=== PATIENT | male | born 1985 | race Asian ===

== ENCOUNTER 2021-09-07 19:39 | Inpatient (IN) | payer OTHER ==
[~2021-09-07] VITALS: Ht 167.6 cm; Wt 71.7 kg
--- NOTE | 2021-09-07 19:40 | NUR ---
BIBFRIEND C/O ASTHMA ATTACK INHALER AT HOME NO RELIEF. UPON TRIAGE PT ON NRB 15LPM SATTING AT 96%. PT AWAKE. CONNECTED PT TO POX AND MONITOR
--- NOTE | 2021-09-07 19:45 | NUR ---
LAC #20G S/L; PATENT AND INTACT
[2021-09-07] MEDS ORDERED: ALBUTEROL FS 2.5 MG/3 ML VIAL.NEB ONE (19:46)
[2021-09-07] MEDS ORDERED: IPRATROPIUM NEB FS 0.5 MG/2.5 ML AMPUL.NEB ONE ×2 (19:47→19:51)
--- NOTE | 2021-09-07 19:48 | NUR ---
RT AT PT'S BEDSIDE FOR BREATHING TX
[2021-09-07] MEDS ORDERED: TERBUTALINE SULFATE 1 MG/ML VIAL ONE (19:50)
[2021-09-07] MEDS ORDERED: methylPREDNISolone SOD SUCC 125 MG/2ML VIAL ONE (19:50)
[2021-09-07] MEDS ORDERED: Magnesium 1GM/D5W 100ML PREMIX 100 ML IV ONE ×2 (19:50→19:58)
--- NOTE | 2021-09-07 19:53 | NUR ---
BLOOD COLLECTED AND GIVEN TO LAB
[2021-09-07] MEDS ORDERED: Magnesium 1GM/D5W 100ML PREMIX 200 ML IV ONE (20:00)
[2021-09-07] MEDS ORDERED: TERBUTALINE SULFATE 1 MG/ML VIAL SQ ONE (20:00)
[2021-09-07] MEDS ORDERED: methylPREDNISolone SOD SUCC 125 MG/2ML VIAL IV ONE (20:00)
[2021-09-07] MEDS ORDERED: IPRATROPIUM NEB FS 0.5 MG/2.5 ML AMPUL.NEB NEB ONE (20:00)
[2021-09-07] MEDS ORDERED: IV NS 0.9% 1,000 ML IV ONE (20:00)
[2021-09-07] MEDS ORDERED: ALBUTEROL FS 2.5 MG/3 ML VIAL.NEB CONTNEB ONE (20:00)
--- NOTE | 2021-09-07 20:09 | NUR ---
ASSISTED LIVING COORDINATOR AT PT'S BEDSIDE
--- NOTE | 2021-09-07 20:42 | NUR ---
COVID SWAB COLLECTED AND SENT TO LAB
[2021-09-07 20:56] LABS: BASOPHILS # (AUTO) 0.1 K/uL (0.0-0.2); BASOPHILS % (AUTO) 0.5 % (0.0-2.0); CREATININE 1.3 mg/dL (0.6-1.3); EOSINOPHILS % (AUTO) 7.1 % (0.0-6.0); HEMATOCRIT 49 % (39-51); HEMOGLOBIN 16.6 g/dL (13.5-17.5); LYMPHOCYTES # (AUTO) 1.6 K/uL (0.8-4.8); LYMPHOCYTES % (AUTO) 11.1 % (20.0-44.0); MEAN CORPUSCULAR HGB CONC 34 g/dl (31.0-36.0); MEAN CORPUSCULAR VOLUME 92 fL (80-96); MONOCYTES # (AUTO) 1.2 K/uL (0.1-1.30); MONOCYTES % (AUTO) 8.4 % (2.0-12.0); NEUTROPHILS # (AUTO) 10.8 K/uL (1.8-8.9); NEUTROPHILS % (AUTO) 72.9 % (43.0-81.0); PLATELET COUNT (AUTO) 311 K/uL (150-450); POTASSIUM 3.8 mmol/L (3.5-5.1); RED BLOOD CELL COUNT(AUTO) 5.33 MIL/uL (4.5-6.0); WHITE BLOOD COUNT (AUTO) 14.7 K/uL (4.3-11.0)
--- NOTE | 2021-09-07 20:58 | NUR ---
TITRATED PT TO 8LPM SIMPLE MASK; TOLERATING WELL AT 96%
[2021-09-07] MEDS ORDERED: ZOLPIDEM TARTRATE 5 MG TABLET PO PRN (21:00)
[2021-09-07] MEDS ORDERED: MAG HYDROX/AL HYDROX/SIMETH 30 ML UDC PO PRN (21:00)
[2021-09-07] MEDS ORDERED: ONDANSETRON HCL/PF 4 MG/2 ML VIAL IVP PRN (21:00)
[2021-09-07] MEDS ORDERED: MAGNESIUM HYDROXIDE 30 ML UDC PO PRN (21:00)
[2021-09-07] MEDS ORDERED: Z GUARD REMEDY 4 OZ OINT TP PRN (21:00)
[2021-09-07 21:46] LABS: CALCIUM, SERUM 8.8 mg/dL (8.5-10.1)
--- NOTE | 2021-09-07 22:07 | NUR ---
SPOKE TO ART AT [facility], CLININCAL INFO GIVEN OVER THE PHONE. PT GOT AUTHTO STAY AT THE HOSPITAL WITH AUTH NO. [id number] FAX:[phone]
--- NOTE | 2021-09-07 22:19 | NUR ---
FAXED FACE SHEET AND CLININCALS TO ART
--- NOTE | 2021-09-07 22:46 | NUR ---
REPORT GIVEN TO NIKKI BartlettW RN FOR JOSE
[2021-09-07 23:00] VITALS: BP 137/96
--- NOTE | 2021-09-07 23:00 | NUR ---
COATING ENGINEER NOTES: RECEIVED PATIENT FROM ER VIA RNEY, ON STABLE CONDITION, NO COMPLAIN OF PAIN AND DISCOMFORT AT THIS TIME, ON TELE MONITORING ST-107 ON O2 INHALATION AT 2LPM SATURATING WELL, PATIENT HAS SOB BED IS UPRIGHT AT 45 DEGREE, SKIN ASSESSMENT DONE NO ISSUE HAS BEEN OBSERVED, INVENTORY LIST DONE SIGNED, PATIENT WAS ORIENTED TO ROOM, REMIND PATIENT TO USE CALL LIGHTS WHEN NEEDED ASSISTANCE, V/S ARE S FOLLOWS: BP-137/96, RR-23, O2 SAT-98% VIA 2LPM NASAL CANNULA, HR-106, PATIENT KEPT CLEAN AND DRY ALL NEEDS MET WILL CONTINUE TO MONITOR.
--- NOTE | 2021-09-07 23:05 | NUR ---
PT TRANSFERRED TO 3W VIA ACLS PROTOCOL . VSS. ALL BELONGINGS WITH PT.
[2021-09-07] MEDS: ALBUTEROL FS 2.5 MG/3 ML VIAL.NEB NEB SCH (23:11)
[2021-09-07] MEDS: IPRATROPIUM NEB FS 0.5 MG/2.5 ML AMPUL.NEB NEB SCH (23:12)
[2021-09-08] VITALS: BP 100/63
[2021-09-08] MEDS: IPRATROPIUM NEB FS 0.5 MG/2.5 ML AMPUL.NEB NEB SCH ×6 (03:45→23:37)
[2021-09-08] MEDS: ALBUTEROL FS 2.5 MG/3 ML VIAL.NEB NEB SCH ×6 (03:45→23:36)
[2021-09-08 04:00] VITALS: BP 102/48
[2021-09-08 06:08] LABS: CALCIUM, SERUM 8.5 mg/dL (8.5-10.1); CREATININE 1.2 mg/dL (0.6-1.3); MAGNESIUM 2.4 mg/dL (1.8-2.4); PHOSPHORUS 3.4 mg/dL (2.5-4.9); POTASSIUM 4.4 mmol/L (3.5-5.1)
--- NOTE | 2021-09-08 06:28 | NUR ---
FUR GRADER CLOSING NOTES: PATIENT SLEEP IN BED COMFORTABLY, AROUSABLE TO VERBAL STIMULI, BED IN LOW POSITION, CALL LIGHTS WITHIN REACH, NO COMPLAIN OF PAIN AND DISCOMFORT AT THIS TIME, ON O2 INHALATION AT 2LPM SATURATING WELL, ON TELE MONITORING SR-91, PATIENT IS A/OX4 VELMA TO MAKE NEEDS KNOWN REMIND PT. TO USE CALL LIGHTS WHEN NEEDED ASSISTANCE, PATIENT KEPT CLEAN AND DRY ALL NEEDS MET ENDORSE TO INCOMING SHIFT.
[2021-09-08 06:45] LABS: BASOPHILS % (AUTO) 0.1 % (0.0-2.0); HEMATOCRIT 44 % (39-51); HEMOGLOBIN 14.8 g/dL (13.5-17.5); LYMPHOCYTES # (AUTO) 0.4 K/uL (0.8-4.8); MEAN CORPUSCULAR HGB CONC 34 g/dl (31.0-36.0); MEAN CORPUSCULAR VOLUME 92 fL (80-96); MONOCYTES # (AUTO) 0.1 K/uL (0.1-1.30); MONOCYTES % (AUTO) 0.6 % (2.0-12.0); NEUTROPHILS # (AUTO) 9.3 K/uL (1.8-8.9); NEUTROPHILS % (AUTO) 95.3 % (43.0-81.0); PLATELET COUNT (AUTO) 260 K/uL (150-450); RED BLOOD CELL COUNT(AUTO) 4.78 MIL/uL (4.5-6.0); WHITE BLOOD COUNT (AUTO) 9.8 K/uL (4.3-11.0)
--- NOTE | 2021-09-08 07:45 | NUR ---
TELE/RN OPENING NOTES: RECEIVED PATIENT IN BED, ALERT AND ORIENTED X4, ABLE TO MAKE NEEDS KNOWN. NO COMPLAINTS OF PAIN AND DISCOMFORT AT THIS TIME, ON OXYGEN VIA NASAL CANNULA AT 2LPM SATURATING WELL, ON TELE MONITORING SR 90'S. IV ACCESS ON LEFT AC #20G IS INTACT AND PATENT ON SALINE LOCK. SAFETY MEASURES IN PLACED: BED LOCKED ON LOWEST POSITION, SIDE RAILS UPX2, CALL LIGHT WITHIN EASY REACH. WILL CONTINUE WITH THE PLAN OF CARE.
[2021-09-08 08:00] VITALS: BP 106/46
--- NOTE | 2021-09-08 08:11 | NUR ---
PT. IS AWAKE AND ALERT. TITRATE 02 FLOW FROM 3 LPM TO 2 LPM DUE TO SATURATION OF 96% Addendum: 09/08/21 at 0814 by KRISTIAN VAUGHAN RT Amended: Links added.
[2021-09-08] MEDS: methylPREDNISolone SOD SUCC 125 MG/2ML VIAL IV SCH ×3 (08:40→17:23)
[2021-09-08] MEDS ORDERED: ALBU8.5H8 IH (08:47)
[2021-09-08] MEDS: IV NS 0.9% 1,000 ML IV SCH ×2 (11:24→23:19)
[2021-09-08 12:00] VITALS: BP 121/46
[2021-09-08] MEDS: ACETAMINOPHEN 325 MG TABLET PO PRN (13:21)
[2021-09-08 16:00] VITALS: BP 106/56
--- NOTE | 2021-09-08 19:40 | NUR ---
RN OPENING NOTES Patient is A&Ox4 in bed in no signs of distress. Denies pain or discomfort at this time. Denies SOB. ST on the monitor 105 at this time LAC #20G intact and patent NS running at 75ml/hr. Will continue to monitor and with plan of care.
[2021-09-08 20:00] VITALS: BP 117/53
--- NOTE | 2021-09-08 20:30 | NUR ---
Patient HR ST on monitor in 120s up to 130 at one point. Checked on patient. Patient says it does feel like his heart is racing which happens after his breathing treatments but will go away. No other symptoms or signs seen. Will monitor patient closely.
--- NOTE | 2021-09-08 21:00 | NUR ---
Patient's HR back down to 108 patient reports feeling better.
[2021-09-09] VITALS: BP 104/68
[2021-09-09 04:00] VITALS: BP 105/53
[2021-09-09] MEDS: ALBUTEROL FS 2.5 MG/3 ML VIAL.NEB NEB SCH ×6 (04:03→23:25)
[2021-09-09] MEDS: IPRATROPIUM NEB FS 0.5 MG/2.5 ML AMPUL.NEB NEB SCH ×6 (04:03→23:25)
[2021-09-09] MEDS: LORAZEPAM 1 MG TABLET PO PRN (04:06)
--- NOTE | 2021-09-09 06:45 | NUR ---
RN CLOSING NOTES Patient A&Ox4 patient reports he feels fatigued, but otherwise no episodes of SOB. Patient stayed on bed rest. Satting at 96% and above on 2L via NC. ST on tele monitor overnight with heart rate usually 100-110 but going up to 120s immediately after breathing treatment but resolves shortly thereafter. LAC #20G still intact and patent NS at 75ml/hr running. Currently stable resting in bed though easy to wake. No signs of distress.
[2021-09-09 07:20] LABS: CALCIUM, SERUM 8.6 mg/dL (8.5-10.1); POTASSIUM 4.2 mmol/L (3.5-5.1)
[2021-09-09 07:22] LABS: HEMATOCRIT 43 % (39-51); LYMPHOCYTES # (AUTO) 0.6 K/uL (0.8-4.8); LYMPHOCYTES % (AUTO) 2.9 % (20.0-44.0); MEAN CORPUSCULAR HGB CONC 32 g/dl (31.0-36.0); MEAN CORPUSCULAR VOLUME 92 fL (80-96); MONOCYTES # (AUTO) 0.8 K/uL (0.1-1.30); MONOCYTES % (AUTO) 4.3 % (2.0-12.0); NEUTROPHILS # (AUTO) 18.1 K/uL (1.8-8.9); NEUTROPHILS % (AUTO) 92.8 % (43.0-81.0); PLATELET COUNT (AUTO) 270 K/uL (150-450); RED BLOOD CELL COUNT(AUTO) 4.67 MIL/uL (4.5-6.0); WHITE BLOOD COUNT (AUTO) 19.5 K/uL (4.3-11.0)
--- NOTE | 2021-09-09 07:45 | NUR ---
RN NOTES RESTING IN BED, EYES CLOSED, BREATHING EVEN AND UNLABORED ON O2 AT 2L VIA NC. NO RESPIRATORY DISTRESS NOTED. ABLE TO MAKE NEEDS KNOWN. IVF INFUSING WELL. SAFETY MEASURES IN PLACE. WILL CONTINUE TO MONITOR.
[2021-09-09 08:00] VITALS: BP 108/48
[2021-09-09] MEDS: methylPREDNISolone SOD SUCC 125 MG/2ML VIAL IV SCH ×2 (09:16→16:18)
[2021-09-09] MEDS: IV NS 0.9% 1,000 ML IV SCH (12:26)
[2021-09-09 16:00] VITALS: BP 125/57
[2021-09-09] MEDS: ACETAMINOPHEN 325 MG TABLET PO PRN (17:43)
--- NOTE | 2021-09-09 19:24 | NUR ---
RN NOTES PATIENT RESTING IN BED, NO RESPIRATORY DISTRESS. REQUESTED FOR TYLENOL FOR HEADACHE, ADMINISTERED INDICATED. DUE MEDS GIVEN TODAY. BREATHING TX TAKEN FAIRLY. SAFETY MEASURES MAINTAINED. ENDORSED TO AIR PURIFIER SERVICER RN FOR JOSE.
[2021-09-09 20:00] VITALS: BP 140/71
--- NOTE | 2021-09-09 20:16 | NUR ---
RT albuterol not given due to high heart rate. notified rashawn wyatt.
[2021-09-10] VITALS: BP 106/73
--- NOTE | 2021-09-10 | NUR ---
SALVATIONIST NOTES PT NOTED WITH TEMP 102.2, MCGUIRE AND R THIGH PAIN/CRAMPS. COOLING MEASURES DONE. NOTIFIED YAAKOV MANDATE RETAIL SERVICE MERCHANDISER FOR [facility] WITH NEW ORDERS MADE. ORDERS NOTED AND CARRIED OUT. WILL CONTINUE TO MONITOR.
[2021-09-10] MEDS: ACETAMINOPHEN 325 MG TABLET PO PRN ×2 (00:08→09:10)
[2021-09-10] MEDS: LORAZEPAM 1 MG TABLET PO PRN (00:09)
[2021-09-10] MEDS: IBUPROFEN 600 MG TABLET PO PRN ×2 (00:51→02:54)
[2021-09-10] MEDS: IV NS 0.9% 1,000 ML IV SCH ×2 (02:24→15:56)
[2021-09-10] MEDS: ALBUTEROL FS 2.5 MG/3 ML VIAL.NEB NEB SCH ×4 (03:30→14:49)
[2021-09-10] MEDS: IPRATROPIUM NEB FS 0.5 MG/2.5 ML AMPUL.NEB NEB SCH ×4 (03:30→14:49)
[2021-09-10 05:00] VITALS: BP 95/53
--- NOTE | 2021-09-10 06:13 | NUR ---
HOT HEAD MACHINE OPERATOR NOTES AWAKE & RESPONSIVE. NOT IN ANY DISTRESS. NO SOB NOTED. DENIES ANY PAIN OR DISCOMFORT AT THIS TIME. ON TELE ST @ 114 WITH IVF INFUSING WELL. MONITORED ACCORDINGLY. CALL LIGHT WITHIN REACH. BED IN LOWEST POSITION. SR UP X 2 FOR SAFETY. WILL ENDORSE TO NEXT SHIFT.
--- NOTE | 2021-09-10 07:27 | NUR ---
THIRD COOK OPENING NOTES PT ASLEEP IN BED, EASILY AWAKEN UPON CALL OR TOUCH. AOX4 AND ABLE TO MAKE NEEDS KNOWN. ON O2 @ 2L/MIN VIA NASAL CANNULA, TOLERATING WELL. BREATHING EVEN AND UNLABORED. NOT IN ANY SIGN OF RESPIRATORY DISTRESS. ON TELE MONITOR, SHOWS SINUS TACH WITH HR 126. IV ACCESS ON LAC G#20 INTACT, PATENT, AND FLUSHING WELL. SAFETY MEASURES PROVIDED: BED IN LOWEST AND LOCKED POSITION; SIDE RAILS UPX2, CALL LIGHT WITHIN EASY REACH. WILL CONTINUE TO MONITOR AND WITH PLAN OF CARE.
[2021-09-10 08:00] VITALS: BP 107/65
[2021-09-10] MEDS ORDERED: BECL10.6 INH (09:12)
[2021-09-10] MEDS ORDERED: OLOD4MIS2 IH (09:12)
[2021-09-10] MEDS ORDERED: PRED20TA PO (09:12)
[2021-09-10] MEDS: methylPREDNISolone SOD SUCC 125 MG/2ML VIAL IV SCH ×2 (09:16→16:26)
--- NOTE | 2021-09-10 17:19 | NUR ---
RN DISCHARGED NOTES PT DISCHARGED HOME IN STABLE CONDITION. A/O X4, SAME ABLE TO MAKE NEEDS KNOWN. V/S TAKEN, STABLE AND RECORDED. NO SKIN ISSUES NOTED. ALL BELONGINGS ACCOUNTED FOR AND PT SIGNED BELONGINGS LIST. IV ACCESS ON LAC G#20 REMOVED WITH NO ACTIVE BLEEDING NOTED, DRY PRESSURE DRESSING APPLIED AT SITE. EDUCATED PT ON SMOKING CESSATION, DISCHARGED INSTRUCTIONS GIVEN WITH VERBALIZATION OF UNDERSTANDING. HOME MEDICATION PICKED-UP FROM PHARMACY AND HANDED TO PT. PT LEFT UNIT VIA WHEELCHAIR AT 1710 ACCOMPANIED BY JULIA JEFFRIES. PT TRANSPORTATION GOING HOME ARRANGED VIA [id number] ([facility]). MD AND CHARGE NURSE AWARE OF DISCHARGE.
== END 2021-09-10 17:30 | disposition home or self-care (01) | DRG 133 ==
LOC: ER 19:47 → TELE 22:16
PROVIDERS: ADMIT Family Medicine; ATTEND Internal Medicine
DX: J96.01 Acute respiratory failure with hypoxia (principal); E87.2 Acidosis; J45.902 Unspecified asthma with status asthmaticus; J45.901 Unspecified asthma with (acute) exacerbation; D72.829 Elevated white blood cell count, unspecified; R73.9 Hyperglycemia, unspecified; F17.200 Nicotine dependence, unspecified, uncomplicated; F41.9 Anxiety disorder, unspecified; Z20.822 Contact with and (suspected) exposure to COVID-19
CPT/HCPCS: 36415; 70220-TC; 71045-TC; 80048-TC; 83735-TC; 84100-TC; 85025-TC; 87040-TC; 87081-TC; 94799-TC; C9803; G0378; J2930; J3105; J3475; J7030

== ENCOUNTER 2021-09-12 05:14 | Inpatient (IN) | payer OTHER ==
[~2021-09-12] VITALS: Ht 170.2 cm; Wt 72.6 kg
[~2021-09-12 05:14] MED LIST: ALBU8.5H8 IH; BECL10.6 INH; OLOD4MIS2 IH; PRED20TA PO
--- NOTE | 2021-09-12 05:38 | NUR ---
BIBS. TO ER BED 7. AAOX4. SOB. NOTED SATTING @ 91% AT RA. PT REPORTS THAT HE WAS AMITTED RECENTLY TO THE HOSPITAL. HE STATES THAT HE WAS DISCHARGED AND STILL NOT FEELING WELL. PT NOTED TACHYCARDIC @ 124.. ORAL TEMP @ 100.2. WAS AT THE BEDSIDE JOSH RAMIREZ. ORDERS RECEIVED, NOTED AND CARRIED OUT
[2021-09-12] MEDS ORDERED: methylPREDNISolone SOD SUCC 125 MG/2ML VIAL ONE (05:47)
[2021-09-12] MEDS ORDERED: ACETAMINOPHEN ES 500 MG TABLET ONE (05:48)
[2021-09-12] MEDS ORDERED: Magnesium 1GM/D5W 100ML PREMIX 100 ML IV ONE ×2 (05:48→07:43)
--- NOTE | 2021-09-12 05:56 | NUR ---
LAB AT BEDSIDE
--- NOTE | 2021-09-12 05:56 | NUR ---
IV ESTABLISHED, RAC 18G. BLOOD COLLECTED AND SENT TO LAB
[2021-09-12] MEDS ORDERED: IPRATROPIUM NEB FS 0.5 MG/2.5 ML AMPUL.NEB NEB ONE ×2 (06:00→09:00)
[2021-09-12] MEDS ORDERED: ALBUTEROL FS 2.5 MG/3 ML VIAL.NEB CONTNEB ONE (06:00)
[2021-09-12] MEDS ORDERED: methylPREDNISolone SOD SUCC 125 MG/2ML VIAL IV ONE (06:00)
[2021-09-12] MEDS ORDERED: ACETAMINOPHEN 325 MG TABLET PO ONE (06:00)
[2021-09-12] MEDS ORDERED: Magnesium 1GM/D5W 100ML PREMIX 200 ML IV ONE ×2 (06:00→07:30)
--- NOTE | 2021-09-12 06:00 | NUR ---
COVID ANTIGEN SWAB COLLECTED AND SENT TO LAB
--- NOTE | 2021-09-12 06:06 | NUR ---
XRAY AT BEDSIDE
--- NOTE | 2021-09-12 06:13 | NUR ---
HIGH SCHOOL SCIENCE TEACHER AT BEDSIDE
[2021-09-12] MEDS ORDERED: ALBUTEROL FS 2.5 MG/3 ML VIAL.NEB ONE ×2 (06:16→08:42)
[2021-09-12] MEDS ORDERED: IPRATROPIUM NEB FS 0.5 MG/2.5 ML AMPUL.NEB ONE ×2 (06:16→08:42)
[2021-09-12 06:23] LABS: BASOPHILS % (AUTO) 0.1 % (0.0-2.0); EOSINOPHILS % (AUTO) 0.3 % (0.0-6.0); HEMATOCRIT 41 % (39-51); HEMOGLOBIN 13.7 g/dL (13.5-17.5); LYMPHOCYTES % (AUTO) 6.1 % (20.0-44.0); MEAN CORPUSCULAR HGB CONC 33 g/dl (31.0-36.0); MEAN CORPUSCULAR VOLUME 92 fL (80-96); MONOCYTES # (AUTO) 0.8 K/uL (0.1-1.30); MONOCYTES % (AUTO) 4.7 % (2.0-12.0); NEUTROPHILS # (AUTO) 14.4 K/uL (1.8-8.9); NEUTROPHILS % (AUTO) 88.8 % (43.0-81.0); PLATELET COUNT (AUTO) 225 K/uL (150-450); RED BLOOD CELL COUNT(AUTO) 4.48 MIL/uL (4.5-6.0); WHITE BLOOD COUNT (AUTO) 16.2 K/uL (4.3-11.0)
[2021-09-12 06:38] LABS: ALANINE AMINOTRANSFERASE 34 U/L (12-78); ALBUMIN 2.4 g/dL (3.4-5.0); ALKALINE PHOSPHATASE 66 U/L (46-116); ASPARTATE AMINOTRANSFERASE 24 U/L (15-37); BILIRUBIN,DIRECT 0.1 mg/dL (0.0-0.2); BILIRUBIN,TOTAL 0.4 mg/dL (0.2-1.0); CALCIUM, SERUM 8.8 mg/dL (8.5-10.1); CARBON DIOXIDE 28 mmol/L (21-32); CHLORIDE 98 mmol/L (98-107); CREATININE 1.2 mg/dL (0.6-1.3); GLUCOSE 109 mg/dL (74-106); POTASSIUM 2.9 mmol/L (3.5-5.1); SODIUM SERUM 135 mmol/L (136-145); TOTAL PROTEIN, SERUM 6.8 g/dL (6.4-8.2); UREA NITROGEN, BLOOD 19 mg/dL (7-18)
--- NOTE | 2021-09-12 06:50 | NUR ---
LACTIC ACID 2.1
--- NOTE | 2021-09-12 07:10 | NUR ---
POTASSIUM 2.9, MADE AWARE
[2021-09-12] MEDS ORDERED: TERBUTALINE SULFATE 1 MG/ML VIAL SQ ONE (07:30)
[2021-09-12] MEDS ORDERED: POTASSIUM CHLORIDE 20 MEQ TAB.PRT.SR PO ONE ×2 (08:00→08:03)
--- NOTE | 2021-09-12 08:12 | NUR ---
SMITA PAINTER TEL [phone] ASKED FOR PEER TO PEER CALL [facility].
--- NOTE | 2021-09-12 08:14 | NUR ---
PLEASE CALL DR. HOPE [phone] AT [facility].
[2021-09-12] MEDS ORDERED: CEFTRIAXONE 1 G in IV D5W 50 ML IV ONE (08:30)
[2021-09-12] MEDS ORDERED: PIPERACILLIN /TAZOBACTAM 3.375 G in IV D5W 50 ML IV ONE (08:30)
--- NOTE | 2021-09-12 08:30 | NUR ---
CALLED [phone] DR. CARSON AT [facility] SPEAKING WITH DR. MARINELLI.
--- NOTE | 2021-09-12 08:35 | NUR ---
SMITA LEFT VM
--- NOTE | 2021-09-12 08:42 | NUR ---
SMITA CALLED BACK WITH AUTH# [id number]
[2021-09-12] MEDS ORDERED: ALBUTEROL FS 2.5 MG/3 ML VIAL.NEB NEB ONE (09:00)
--- NOTE | 2021-09-12 09:48 | NUR ---
GOT BED 315
[2021-09-12] MEDS ORDERED: IPRATROPIUM NEB FS 0.5 MG/2.5 ML AMPUL.NEB NEB PRN (10:00)
[2021-09-12] MEDS ORDERED: ONDANSETRON HCL/PF 4 MG/2 ML VIAL IVP PRN (10:00)
[2021-09-12] MEDS ORDERED: TEMAZEPAM 15 MG CAPSULE PO PRN (10:00)
[2021-09-12] MEDS ORDERED: HYDROCODONE/APAP 5/325MG TABLET PO PRN (10:00)
[2021-09-12] MEDS ORDERED: MAG HYDROX/AL HYDROX/SIMETH 30 ML UDC PO PRN (10:00)
[2021-09-12] MEDS ORDERED: ALBUTEROL FS 2.5 MG/3 ML VIAL.NEB NEB PRN (10:00)
[2021-09-12] MEDS ORDERED: MAGNESIUM HYDROXIDE 30 ML UDC PO PRN (10:00)
[2021-09-12] MEDS ORDERED: ACETAMINOPHEN 325 MG TABLET PO PRN (10:00)
[2021-09-12] MEDS ORDERED: IV NS 0.9% 1,000 ML IV PRN (10:00)
[2021-09-12] MEDS ORDERED: Z GUARD REMEDY 4 OZ OINT TP PRN (10:00)
--- NOTE | 2021-09-12 11:30 | NUR ---
TRANSFERRED PT TO 3W ROOM 315-2 PER PROTOCOL. REPORT GIVEN TO SHARYN RN AT BEDSIDE. NO SOB. NOT IN DISTRESS. DENIES PAIN.
--- NOTE | 2021-09-12 12:00 | NUR ---
ms rn received on bed, new admission form er, awake,alert,oriented x4, came in w/ dx of asthma exacerbation,no sob noted, denies pain at this time, will monitor patient.
[2021-09-12 12:41] LABS: ABG BASE EXCESS -0.7 mmol/L; ABG OXYGEN SATURATION 91.9 % (92.0-98.5); ABG PH 7.427 (7.350-7.450); ABG PO2 63.5 mmHg (75.0-100.0); AaDO2 43.1 mmHg; COHb 0.5 % (0.5-1.5); MetHb 0.2 % (0.0-1.5); O2Hb 91.3 % (94.0-97.0); SITE, ABG Right Radial; VENT MODE, BG ROOM AIR
--- NOTE | 2021-09-12 15:30 | NUR ---
ms rn was seen by dr. sharon magaña/ orders made and carried out.
--- NOTE | 2021-09-12 18:20 | NUR ---
ms rn due meds given,tolerated well, all needs attended.
[2021-09-12] MEDS: CEFEPIME 2 GM in IV D5W 100 ML IV SCH ×2 (18:39→21:28)
[2021-09-12] MEDS: methylPREDNISolone SOD SUCC 40 MG/ML VIAL IV SCH ×2 (18:42→21:28)
[2021-09-12] MEDS: ENOXAPARIN SODIUM 40 MG/0.4 ML DISP.SYRIN SQ SCH (18:43)
--- NOTE | 2021-09-12 19:22 | NUR ---
TELE OPENING NOTE PATIENT IN BED AWAKE. A/OX4. NO S/S OF DISTRESS; BREATHING ON RM AIR W/O DIFFICULTY. LAC #18 INTACT AND PATENT W/ NS 75ML/HR. TELE MONITOR REVEALS ST 104. SAFETY MEASURES IN PLACE: BED AT LOWEST POSITION, LOCKED, RAILS UP X3, CALL ROBBINS WITHIN REACH. WILL CONTINUE TO MONITOR PATIENT.
[2021-09-12 20:00] VITALS: BP 109/55
[2021-09-12] MEDS ORDERED: CEFEPIME 1 GM in IV D5W 50 ML IV SCH (21:00)
--- NOTE | 2021-09-12 21:46 | NUR ---
RT RECVD CALL FROM NURSE OLMOS REGARDING NEB TX FOR THIS PATIENT. I WAS NOT MADE AWARE OF PT ON THIS FLOOR WITH TX DUE UNTIL 2130PM. LATE TX GIVEN AT 21:39. NURSE INFORMED TX NOW GIVEN. PT IS AWAKE AND VERBAL. TOLERATED TX WELL WITH NO ADVERSE REACTIONS.
[2021-09-12] MEDS: ALBUTEROL FS 2.5 MG/3 ML VIAL.NEB NEB SCH (21:54)
[2021-09-12] MEDS: IPRATROPIUM NEB FS 0.5 MG/2.5 ML AMPUL.NEB NEB SCH (21:54)
[2021-09-13] VITALS: BP 109/60
[2021-09-13] MEDS: IPRATROPIUM NEB FS 0.5 MG/2.5 ML AMPUL.NEB NEB SCH ×7 (00:33→23:30)
[2021-09-13] MEDS: ALBUTEROL FS 2.5 MG/3 ML VIAL.NEB NEB SCH ×7 (00:33→23:30)
[2021-09-13 04:00] VITALS: BP 111/59
[2021-09-13] MEDS: CEFEPIME 2 GM in IV D5W 100 ML IV SCH ×3 (05:04→20:48)
[2021-09-13] MEDS: methylPREDNISolone SOD SUCC 40 MG/ML VIAL IV SCH ×3 (05:05→20:48)
[2021-09-13 06:10] LABS: BASOPHILS % (AUTO) 0.2 % (0.0-2.0); HEMATOCRIT 40 % (39-51); HEMOGLOBIN 13.2 g/dL (13.5-17.5); LYMPHOCYTES # (AUTO) 0.4 K/uL (0.8-4.8); LYMPHOCYTES % (AUTO) 1.4 % (20.0-44.0); MEAN CORPUSCULAR HGB CONC 33 g/dl (31.0-36.0); MEAN CORPUSCULAR VOLUME 91 fL (80-96); MONOCYTES # (AUTO) 0.8 K/uL (0.1-1.30); MONOCYTES % (AUTO) 3.4 % (2.0-12.0); NEUTROPHILS # (AUTO) 23.6 K/uL (1.8-8.9); PLATELET COUNT (AUTO) 234 K/uL (150-450); RED BLOOD CELL COUNT(AUTO) 4.39 MIL/uL (4.5-6.0); WHITE BLOOD COUNT (AUTO) 24.8 K/uL (4.3-11.0)
--- NOTE | 2021-09-13 06:51 | NUR ---
TELE CLOSING NOTE PATIENT ASLEEP IN BED. A/OX4. NO S/S OF DISTRESS, BREATHING ON RM AIR W/O DIFFICULTY. LAC #18 INTACT AND PATENT W/ NS 75ML/HR. TELE MONITOR REVEALS SR 90. SAFETY MEASURES IN PLACE: BED AT LOWEST LEVEL, LOCKED, RAILS UP X3, CALL ROBBINS WITHIN REACH. WILL ENDORSE TO FOLLOWING SHIFT FOR JOSE.
[2021-09-13 07:21] LABS: CALCIUM, SERUM 8.9 mg/dL (8.5-10.1); MAGNESIUM 1.9 mg/dL (1.8-2.4); PHOSPHORUS 5.2 mg/dL (2.5-4.9)
--- NOTE | 2021-09-13 07:22 | NUR ---
TABLE AND DESK FINISHER OPENING NOTES RECEIVED PT AWAKE IN BED IN NO ACUTE SIGN SOF DISTRESS. A/OX4. ABLE TO MAKE NEEDS KNOWN, DENIES PAIN OR SOB AT THIS TIME. ON RM AIR, BREATHING EVN AND UNLABORED. IV ACCESS ON LAC #18G INTACT WITH IVF OF NS @ 75ML/HR INFUSING WELL, NO S/S OF INFILTRATION NOTED. ON TELE-MONITOR WITH CURRENT READING OF NSR, HR 93, NO C/O CARDIAC DISTRESS VOICED. SAFETY MEASURES IN PLACED: BED AT LOWEST LOCKED POSITION WITH SIDE-RAILS UP X2. CALL LIGHT WITHIN REACH. WILL CONTINUE TO MONITOR PATIENT.
[2021-09-13] MEDS: PANTOPRAZOLE 40 MG TABLET.DR PO SCH (08:07)
[2021-09-13 08:48] VITALS: BP 109/52
[2021-09-13 09:05] LABS: POTASSIUM 3.6 mmol/L (3.5-5.1)
[2021-09-13] MEDS: ENOXAPARIN SODIUM 40 MG/0.4 ML DISP.SYRIN SQ SCH (10:29)
--- NOTE | 2021-09-13 19:24 | NUR ---
SENIOR SALES OPERATIONS MANAGER CLOSING NOTES PT IN BED AWAKE AND WATCHING TV AT THIS TIME. A/OX4. ABLE TO MAKE NEEDS KNOWN. AMBULATORY WITH STEADY GAIT. ON ROOM AIR, BREATHING EVEN AND UNLABORED. IV ACCESS ON LAC #18G INTACT WITH IVF OF NS @ 75ML/HR INFUSING WELL, NO S/S OF INFILTRATION NOTED. ON TELE-MONITOR WITH CURRENT READING OF NSR, HR ON THE 90'S, NO C/O CARDIAC DISTRESS VOICED. ALL NEEDS AND CARE ATTENDED WELL. SAFETY MEASURES IN PLACED: BED AT LOWEST LOCKED POSITION WITH SIDE-RAILS UP X2. CALL LIGHT WITHIN REACH. ENDORSED JOSE TO SUPERVISOR RESIDENTIAL RN MARY.
--- NOTE | 2021-09-13 20:09 | NUR ---
METAL BUILDING ASSEMBLER OPENING NOTE PATIENT AWAKE IN BED WATCHING TV, ALERT/ORIENTED X 4, PT ABLE TO MAKE NEEDS KNOWN. PATIENT STABLE ON RA, NO S/S OF DISTRESS OR SOB NOTED, BREATHING EVEN AND UNLABORED, SPO2: 99%. PATIENT ON EXTERNAL BOOSTER OPERATOR READING SINUS TACH, HR: 103. IV ACCESS ON LEFT AC #18G INTACT AND INFUSING NS @ 75 ML/HR. SAFETY MEASURES IN PLACE: CALL LIGHT WITHIN REACH, SIDE RAILS UP X 2, BED LOCKED IN LOWEST POSITION. PATIENT AMBULATORY TO BATHROOM. WILL CONTINUE TO MONITOR PATIENT
[2021-09-13 20:14] VITALS: BP 125/70
[2021-09-14 00:31] VITALS: BP 115/64
[2021-09-14] MEDS: IPRATROPIUM NEB FS 0.5 MG/2.5 ML AMPUL.NEB NEB SCH ×4 (03:40→15:30)
[2021-09-14] MEDS: ALBUTEROL FS 2.5 MG/3 ML VIAL.NEB NEB SCH ×4 (03:40→15:30)
[2021-09-14 04:36] VITALS: BP 121/55
[2021-09-14] MEDS: CEFEPIME 2 GM in IV D5W 100 ML IV SCH ×2 (05:09→12:30)
[2021-09-14] MEDS: methylPREDNISolone SOD SUCC 40 MG/ML VIAL IV SCH ×2 (05:09→12:31)
--- NOTE | 2021-09-14 07:04 | NUR ---
CALENDER LET OFF HELPER CLOSING NOTE PATIENT AWAKE IN BED, ALERT/ORIENTED X 4, PT ABLE TO MAKE NEEDS KNOWN. NO SIGNIFICANT CHANGES THROUGHOUT SHIFT, PT SLEPT WELL THROUGHOUT THE NIGHT. PATIENT STABLE ON RA, NO S/S OF DISTRESS OR SOB NOTED, BREATHING EVEN AND UNLABORED. PATIENT ON EXTERNAL OUTBOUND SALES CONSULTANT READING SINUS RHYTHM, HR: 95. IV ACCESS ON LEFT AC #18G INTACT AND INFUSING NS @ 75 ML/HR. MEDICATIONS GIVEN ORDERED, PT NEEDS MET THROUGHOUT SHIFT. SAFETY MEASURES IN PLACE: CALL LIGHT WITHIN REACH, SIDE RAILS UP X 2, BED LOCKED IN LOWEST POSITION. WILL ENDORSE TO DAY SHIFT NURSE FOR CONTINUITY OF CARE
--- NOTE | 2021-09-14 07:25 | NUR ---
TRAY DRIER OPERATOR OPENING NOTES RECEIVED PT ASLEEP IN BED, EASILY AWAKEN UPON CALL. A/OX4. ABLE TO MAKE NEEDS KNOWN. ON RM AIR, TOLERATING WELL, BREATHING EVEN AND UNLABORED. ON TELE-MONITOR WITH CURRENT READING OF NSR, HR 98. IV ACCESS ON LAC G#18, INTACT WITH IVF OF NS RUNNING @ 75ML/HR AND INFUSING WELL. DENIES PAIN OR DISCOMFORT AT THIS TIME. SAFETY MEASURES IN PLACED: BED AT LOWEST AND LOCKED POSITION WITH SIDE-RAILS UP X2. CALL LIGHT WITHIN REACH. WILL CONTINUE TO MONITOR PATIENT.
[2021-09-14] MEDS: PANTOPRAZOLE 40 MG TABLET.DR PO SCH (07:48)
[2021-09-14 08:00] VITALS: BP 126/71
[2021-09-14] MEDS: ENOXAPARIN SODIUM 40 MG/0.4 ML DISP.SYRIN SQ SCH (09:31)
[2021-09-14 12:00] VITALS: BP 118/63
[2021-09-14 16:00] VITALS: BP 124/68
--- NOTE | 2021-09-14 18:06 | NUR ---
RN DISCHARGED NOTES PT DISCHARGED HOME IN STABLE CONDITION. PT IS A/O X4. ABLE TO MAKE NEEDS KNOWN. V/S TAKEN, STABLE AND RECORDED. ALL BELONGINGS ACCOUNTED FOR AND PT SIGNED BELONGINGS LIST. SKIN IS INTACT. IV ACCESS ON LAC G#18 REMOVED, NO ACTIVE BLEEDING NOTED, DRY PRESSURE DRESSING APPLIED AT SITE. NAME ARMBAND REMOVED. HEALTH TEACHINGS AND DISCHARGE INSTRUCTIONS GIVEN TO PT AND VERBALIZED UNDERSTANDING. PRESCRIPTION FOR ANTIBIOTIC PO HANDED TO PT. PT LEFT UNIT AMBULATORY AT 1800 ACCOMPANIED BY JULIA NOBLES MD AND CHARGE NURSE AWARE OF DISCHARGE.
== END 2021-09-14 18:01 | disposition home or self-care (01) | DRG 137 ==
LOC: ER 05:19 → TELE 10:31
PROVIDERS: ADMIT Nurse Practitioner Acute Care; ATTEND Nurse Practitioner Acute Care
DX: J15.6 Pneumonia due to other Gram-negative bacteria (principal); J96.01 Acute respiratory failure with hypoxia; E44.1 Mild protein-calorie malnutrition; E87.2 Acidosis; E87.1 Hypo-osmolality and hyponatremia; J45.901 Unspecified asthma with (acute) exacerbation; E88.09 Other disorders of plasma-protein metabolism, not elsewhere classified; J15.9 Unspecified bacterial pneumonia; E87.6 Hypokalemia; E86.1 Hypovolemia; F17.210 Nicotine dependence, cigarettes, uncomplicated; D72.829 Elevated white blood cell count, unspecified; Z68.25 Body mass index [BMI] 25.0-25.9, adult; Z20.822 Contact with and (suspected) exposure to COVID-19; Z71.6 Tobacco abuse counseling
CPT/HCPCS: 36415; 36600; 71045-TC; 80048-TC; 80076-TC; 82803-TC; 83605-TC; 83735-TC; 84100-TC; 84484-TC; 85025-TC; 87040-TC; 87081-TC; 94799-TC; C9803; G0378; J0692; J0696; J1650; J2543; J2920; J2930; J3475; J7030; J7060